=== PATIENT | female | born 1990 | race Two or more races ===

== ENCOUNTER → 2018-01-17 15:00 | Outpatient (CLI) | payer MEDICAID, SELFPAY ==
[2018-01-17 14:21] LABS: Basophils # 0.1 K/mm3 (0-0.2); Basophils % 0.6 % (0.1-2.0); Eosinophils # 0.2 K/mm3 (0.0-0.4); Hematocrit 37.3 % (37.0-47.0); Hemoglobin 11.8 g/dL (12.2-16.2); Lymphocytes # 3.1 K/mm3 (0.7-4.5); Lymphocytes % 35.2 K/mm3 (10-50); Mean Corpuscular HGB Conc 31.7 g/dL (31.8-35.4); Mean Corpuscular Hemoglobin 26.4 pg (27.0-31.2); Mean Corpuscular Volume 83.1 fl (81-99); Mean Platelet Volume 8.5 fl (7.4-10.4); Monocytes # 0.5 K/mm3 (0.1-1.0); Monocytes % 5.3 % (1.7-9.3); Platelet Count 403 K/mm3 (142-424); Red Blood Count 4.49 M/mm3 (4.20-5.40); Red Cell Distribution Width 16.5 % (11.5-17.5); White Blood Count 8.8 K/mm3 (4.8-10.8)
[2018-02-08 20:16] LABS: HIV Screen 4th Generation wRfx NON REACTIVE; Hepatitis B Surface Antigen NEGATIVE; Hepatitis C Antibody <0.1; Rapid Plasma Reagin Ab Titer NON REACTIVE
== END ==
PROVIDERS: PCP Obstetrics & Gynecology; Visit Provider Obstetrics & Gynecology
DX: Z34.90 Encounter for supervision of normal pregnancy, unspecified, unspecified trimester (principal)
CPT/HCPCS: 36415; 85025; 86592; 86703; 86762; 86850; 87340; 87380; G0432

== ENCOUNTER → 2018-04-09 13:20 | Outpatient (CLI) | payer OTHER, SELFPAY ==
--- NOTE | 2018-04-09 13:23 | US_ITS ---
US OB /maternal detail: INDICATION: ITS.REASON: 20 wk+ US OB Complete Anatomy Scan ORDERING PHYSICIAN: Shelia Villanueva MD PATIENT AGE: 27 years TECHNIQUE: ultrasound transabdominal scanning. COMPARISON: No previous relevant studies. FINDINGS: Single viable intrauterine gestation. Cephalic position. Placenta: Posterior placenta grade 1. There is average amount fluid. The cervix appears satisfactory. Closed and measuring 3 cm in length. Complete survey performed and was unremarkable on the submitted images as in PACS. No discrete anomalies identified on survey imaging by technologist. Active fetus. Three-vessel cord with satisfactory umbilical cord insertion. 4- chamber heart noted. Survey of brain & ventricles unremarkable. Face and neck survey unremarkable. Diaphragm and chest views unremarkable. Abdomen: Both kidneys noted and unremarkable. Stomach noted and satisfactory. Spine: Survey of the spine satisfactory with no anomalies identified nor imaged. Both arms and legs noted. Amniotic Fluid: Adequate. Maternal adnexa: No significant findings. Measurements: Average ultrasound age 19w6d. Gestational Age 20w2d. Estimated due date by ultrasound age 1108/28/2018. Estimated weight 313g grams. This is 20th percentile based on the established due date of 08/25/2018 BPD = 20w0d OFD = 20w5d HC = 19w5d AC = 19w6d FL = 19w6d Heart Rate = 147 BPM Cerebellum = 19 weeks 3 days Humerus = 20 weeks 3 days HC/AC is 1.18 (1.09-1.26). CI is 75% (70-86%). FL/BPD is 69%. FL/AC is 22%. IMPRESSION: There is a single live fetus which is in the cephalic presentation with an average ultrasound age of 19 weeks 6 days. No obvious anomalies. All parameters correlate. Please see above for detail.
== END ==
PROVIDERS: PCP Obstetrics & Gynecology; Visit Provider Obstetrics & Gynecology
DX: Z36.0 Encounter for antenatal screening for chromosomal anomalies (principal)
CPT/HCPCS: 76811

== ENCOUNTER → 2018-07-22 12:59 | Outpatient (CLI) | payer OTHER, SELFPAY ==
--- NOTE | 2018-07-22 13:01 | US_ITS ---
US OB biophysical profile: Umbilical artery Doppler Indication: ITS.REASON: US OB BPP GROWTH-Gestational Diabetes S/D Ratio ORDERING PHYSICIAN: Shelia Villanueva MD PATIENT AGE: 27 years FINDINGS: The following parameters are obtained: Average ultrasound age is 35w1d ultrasound age. Estimated due date by ultrasound is 08/25/2018. Estimated weight is 2582 grams which is 45 percentile BPD: 35w1d OFD: 35w1d HC: 34w5d AC: 35w1d FL: 35w1d heart rate: 160 bpm. HC/AC: 0.99 90.93-1.11) Cephalic index: 80% (70-86%) FL/BPD: 78% (71-87%) FL/AC: 22% (20-24%) Amniotic fluid index: 11 cm Qualitative AFV: 2 breathing movements: 2 Gross body movements: 2 Tone: 2 Biophysical profile score: 8/8 Doppler evaluation of the umbilical artery: SD ratio: 2.9 Resistive index: 0.66 No obvious anomalies evident. Placenta: Posterior and grade 1 Cervix: Closed and measures 3 cm IMPRESSION: Single live fetus in cephalic presentation with an average ultrasound age of 35 weeks 1 day. Biophysical profile is 8 of 8 Unremarkable umbilical artery evaluation with SD ratio of 2.9 Estimated weight 2582 g which is 45th percentile
== END ==
PROVIDERS: Visit Provider Obstetrics & Gynecology
DX: O24.419 Gestational diabetes mellitus in pregnancy, unspecified control (principal); Q27.0 Congenital absence and hypoplasia of umbilical artery
CPT/HCPCS: 76819

== ENCOUNTER → 2018-08-07 16:25 | Outpatient (CLI) | payer OTHER, SELFPAY | PROVIDERS: Visit Provider Obstetrics & Gynecology | DX: Z34.90 Encounter for supervision of normal pregnancy, unspecified, unspecified trimester (principal) | CPT/HCPCS: 86403 ==